=== PATIENT | male | born 1940 | race Caucasian/White ===

== ENCOUNTER 2017-08-04 06:17 | Emergency (ER) | payer OTHER, MEDICARE ==
[2017-08-04 06:36] VITALS: BP 136/85
--- NOTE | 2017-08-04 06:56 | ED NOSE COMPLAINT ---
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 PRESSURE APPLIED TO BRIDGE OF NOSE. Triage Nurses Notes Reviewed? yes HPI: Patient has been having an intermittent nosebleed over the past few weeks. Patient states he is to take a low-dose aspirin but stopped it. Patient states that the nosebleed was usually lasts approximately 5 minutes before it would stop. Patient was at work this morning when his nose began to bleed again and after 10 minutes it hadn't stopped so he presents to the emergency department. Patient denies any pain. There is no lightheadedness. There is no difficulty breathing or swallowing. There is no nausea or vomiting. There is no headache. (Juan BARDALES,Cain Laboy) Reconcile Medications Lovastatin 20 MG TABLET 1 TAB PO DAILY CHOLESTEROL (Reported) Prednisone 1 MG TABLET 4 TAB PO DAILY STEROID (Reported) Valsartan/Hydrochlorothiazide (Valsartan-Hctz 160-12.5 MG Tab) 160 MG-12.5 MG TABLET 1 TAB PO DAILY HEART (Reported) (Kevin Shepherd DO) Past History Travel History Traveled to [place] past 21 day No Medical History Any Pertinent Medical History? 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 No (Juan BARDALES,Cain Laboy) Review of Systems Review of Systems Constitutional: Reports: no symptoms. EENTM: Reports: see HPI, epistaxis. Respiratory: Reports: no symptoms. Cardiovascular: Reports: no symptoms. Musculoskeletal: Reports: no symptoms. Neurological/Psychological: Reports: no symptoms. Immunologic/Allergic: Reports: no symptoms. (Juan BARDALES,Cain Laboy) Physical Exam Physical Exam General Appearance: well developed/nourished, alert, awake, mild distress Eyes: Bilateral: PERRL, EOMI. Nose: active bleeding Mouth/Throat: normal mouth inspection, pharynx normal Neck: normal inspection, supple, full range of motion Cardiovascular/Respiratory: normal breath sounds, normal peripheral pulses, regular rate/rhythm, no respiratory distress Neurologic/Psych: no motor/sensory deficits, awake, alert, oriented x 3, normal mood/affect (Cain Martinez MD) Progress Differential Diagnoses I considered the following diagnoses in my evaluation of the patient: [Anterior septal epistaxis] Plan of Care: Direct pressure, if that does not work will need packing or thrombin. Follow-up with ENT. Initial ED EKG: none Hand-Off Endorsed To: Kevin Shepherd DO Endorsed Time: 0700 Pending: other (RE-EVAL) (Cain Martinez MD) Departure Departure Disposition: HOME OR SELF CARE Condition: Stable Clinical Impression Primary Impression: Epistaxis Referrals: Pham BARDALES,Avtar Gleason (PCP/Family) Departure Forms: Customer Survey General Discharge Information (Cain Martinez MD) Departure Comments 08/04/17 The patient was signed out to me by Dr. Martinez. He had right anterior septal bleeding. He failed Afrin and cautery with silver nitrate. He was packed with a 4.5 cm anterior Rhino Rocket into the right naris. At 10:05 AM he had a second episode of ozzing. Another 2 mL of air was insufflated into the Rhino Rocket. He is continuing to be evaluated. (Kevin Shepherd DO)
[2017-08-04] MEDS ORDERED: LOVASTATIN20 M1 PO (07:57)
[2017-08-04] MEDS ORDERED: VALSARTAN-HCTZ1 EAC1 PO (07:57)
[2017-08-04] MEDS ORDERED: PREDNISONE1 MG PO (07:58)
[2017-08-04] MEDS ORDERED: KEFLEX250 M1 PO (10:56)
== END 2017-08-04 11:01 ==
LOC: ERH 06:17
DX: R04.0 Epistaxis (principal)